=== PATIENT | female | born 1990 | race Two or more races ===

== ENCOUNTER 2018-01-17 18:10 | Observation (INO) | payer MEDICAID | END 2018-01-17 19:05 | disposition home or self-care (01) | DRG 566 | LOC: LDRP 18:10 | PROVIDERS: ADMIT Obstetrics & Gynecology; ATTEND Obstetrics & Gynecology | DX: O26.893 Other specified pregnancy related conditions, third trimester (principal); M54.5 Low back pain; R06.02 Shortness of breath; R07.89 Other chest pain; R42 Dizziness and giddiness; Z3A.32 32 weeks gestation of pregnancy | CPT/HCPCS: 59025; 81002; G0378 ==

== ENCOUNTER 2019-05-28 09:34 | Emergency (ER) | payer MEDICAID ==
[~2019-05-28] VITALS: Ht 144.8 cm; Wt 65.8 kg
[~2019-05-28 09:34] MED LIST: PREN-145 OR
[2019-05-28 10:24] VITALS: BP 139/81
[2019-05-28] MEDS ORDERED: BENZOCAINE (DENTAL) 20 % SPRAY 60ML MT ONE (11:00)
== END 2019-05-28 11:44 | disposition home or self-care (01) ==
LOC: ER 09:34
DX: O26.891 Other specified pregnancy related conditions, first trimester (principal); K08.89 Other specified disorders of teeth and supporting structures; Z3A.12 12 weeks gestation of pregnancy

== ENCOUNTER 2019-11-13 10:00 | Observation (INO) | payer MEDICAID | END 2019-11-13 10:35 | disposition home or self-care (01) | LOC: LDRP 10:00 | PROVIDERS: ADMIT Specialist; ATTEND Specialist | DX: O62.9 Abnormality of forces of labor, unspecified (principal); O26.893 Other specified pregnancy related conditions, third trimester; R10.2 Pelvic and perineal pain; Z3A.37 37 weeks gestation of pregnancy | CPT/HCPCS: 59025; 81002; G0378 ==

== ENCOUNTER 2019-11-16 02:59 | Inpatient (IN) | payer MEDICAID ==
[~2019-11-16] VITALS: Ht 152.4 cm; Wt 72.6 kg
[2019-11-16] MEDS ORDERED: LACTATED RINGER'S 1,000 ML IV SCH (03:44)
[2019-11-16] MEDS ORDERED: LIDOCAINE 2%HCL (LOCAL ANESTH.) INJ 20ML MDV ID ONE (03:45)
[2019-11-16] MEDS ORDERED: METHYLERGONOVINE MALEATE 0.2 MG/ML AMP IM PRN (03:45)
[2019-11-16] MEDS ORDERED: WITCH HAZEL-GLYCERIN PAD TOP PRN (03:45)
[2019-11-16] MEDS ORDERED: PHISODERM TOP SOLN 240ML BTL TOP PRN (03:45)
[2019-11-16] MEDS ORDERED: DERMOPLAST 60ML BOTTLE TOP PRN (03:45)
[2019-11-16] MEDS ORDERED: miSOPROStol 100 mcg TAB PR ONE (04:45)
[2019-11-16] MEDS ORDERED: miSOPROStol 100 mcg TAB SL ONE (04:45)
[2019-11-16] MEDS ORDERED: LACT. RINGERS/OXYTOCIN 20UNITS 1,000 ML IV SCH ×2 (05:00→07:17)
[2019-11-16 05:10] LABS: Basophils # (auto) 0.1 10 ^3/uL (0-0.2); Basophils % (auto) 0.5 % (0.0-2.0); Eosinophils # (auto) 0 10 ^3/uL (0-0.8); Eosinophils % (auto) 0.1 % (0.0-7.0); Hematocrit 31.8 % (36.0-46.0); Hemoglobin 10.3 g/dL (12.2-16.2); Lymphocytes # (auto) 1.2 10 ^3/uL (0.4-5.4); Lymphocytes % (auto) 10.8 % (10.0-50.0); Mean Corpuscular Hemoglobin 28.4 pg (28.0-32.0); Mean Corpuscular Hgb Conc. 32.5 g/dL (32.0-36.0); Mean Corpuscular Volume 87.2 fL (80.0-100.0); Monocytes # (auto) 0.3 10 ^3/uL (0-1.3); Monocytes % (auto) 2.7 % (0.0-12.0); Neutrophils # (auto) 9.9 10 ^3/uL (1.6-8.6); Neutrophils % (auto) 85.9 % (37.0-80.0); Nucleated Red Blood Cells % 0.1 %; Platelet Count (auto) 250 10^3/uL (140-450); Red Blood Cells 3.65 10^6/uL (4.0-5.20); Red Cell Distribution Width 16.9 % (11.8-14.3); White Blood Cell 11.5 10^3/uL (4.4-10.8)
[2019-11-16 05:25] LABS: INR 0.92 (0.9-1.15); Partial Thromboplastin Time 29.6 sec (23.0-31.2)
[2019-11-16 05:27] LABS: Albumin 2.6 g/dL (3.4-5.0); Calcium 8.1 mg/dL (8.5-10.1); Potassium 3.6 mmol/L (3.5-5.1)
[2019-11-16 05:30] LABS: BUN/Creatinine Ratio 10.3; Bilirubin, Total 0.3 mg/dL (0.2-1.0); Total Protein 6.9 g/dL (6.4-8.2); Uric Acid 4.5 mg/dL (2.6-6.0)
[2019-11-16] MEDS ORDERED: LACT. RINGERS/OXYTOCIN 20UNITS 500 ML IV ONE (06:17)
[2019-11-16 06:34] VITALS: BP 122/66
--- NOTE | 2019-11-16 06:45 | NUR ---
PT informed of rapid covid test results negative and second test recommended to confirm result, PT refuses second test at this time
[2019-11-16] MEDS: IBUPROFEN 600 MG TAB PO PRN ×2 (06:52→22:40)
[2019-11-16 08:50] VITALS: BP 106/62
--- NOTE | 2019-11-16 08:50 | NUR ---
Ambulation: Patient OOB with standby assistance by RN. Patient ambulated to bathroom with steady gait. Patient able to void 250ml without difficulty. [facility] teaching provided with returned demonstration by patient. Clean gown provided and bed linen changed. Patient ambulated back to bed with steady gait and no distress noted.
[2019-11-16 10:09] LABS: Alcohol, Urine < 3.0 mg/dL (0-10); Amphetamine Screen, Urine NEGATIVE (NEGATIVE); Barbiturate Scree,Urine NEGATIVE (NEGATIVE); Benzodiazephine Screen, Urine NEGATIVE (NEGATIVE); Cannabinoid Screen, Urine NEGATIVE (NEGATIVE); Cocaine Screen, Urine NEGATIVE (NEGATIVE); Opiate Scree,Urine NEGATIVE (NEGATIVE); Phencyclidine Screen, Urine NEGATIVE (NEGATIVE)
[2019-11-16 10:10] LABS: Urine Bacteria NONE SEEN /hpf (None Seen); Urine Blood 3+ /uL (Negative); Urine Mucus FEW (None Seen); Urine Specific Gravity 1.012 (1.001-1.035); Urine WBC 9 /hpf (0 - 5)
[2019-11-16 10:43] VITALS: BP 114/63
--- NOTE | 2019-11-16 12:22 | NUR ---
Report given to Alice Mireles RN, relinquished PT care
[2019-11-16 15:00] VITALS: BP 90/43
[2019-11-16 19:00] VITALS: BP 114/77
--- NOTE | 2019-11-16 19:11 | NUR ---
IV removal IV DC'd with sterile technique, catheter fully intact. Pressure dressing applied to site. Patient tolerated procedure well.
[2019-11-16 22:45] VITALS: BP 91/58
[2019-11-17 02:36] VITALS: BP 94/53
[2019-11-17 05:09] LABS: RPR Non Reactive (Non Reactive)
[2019-11-17 07:00] VITALS: BP 105/67
[2019-11-17 11:15] VITALS: BP 100/60
--- NOTE | 2019-11-17 12:40 | NUR ---
Discharge: Discharge instructions given as ordered. Pt encouraged to follow up with [employer] as instructed. All questions and concerns addressed. Patient verbalized understanding. Medication reconciliation completed and copy given to patient. All required/requested vaccines given and copies of vaccinations given to patient. Patient encouraged to prepare to depart unit.
--- NOTE | 2019-11-17 14:00 | NUR ---
Discharge: Patient taken to vehicle via wheelchair with all personal belongings, accompanied by staff and family member. No distress noted at time of departure, no adverse changes in status since initial assessment.
== END 2019-11-17 14:00 | disposition home or self-care (01) | DRG 560 ==
LOC: OBSVTOIN 02:59 → LDRP 02:59
PROVIDERS: ADMIT Specialist; ATTEND Specialist
PROC: 10E0XZZ Delivery of Products of Conception, External Approach (ICD-10-PCS; principal; 2019-11-16)
DX: O77.0 Labor and delivery complicated by meconium in amniotic fluid (principal); Z37.0 Single live birth; Z3A.37 37 weeks gestation of pregnancy; Z20.828 Contact with and (suspected) exposure to other viral communicable diseases; O45.93 Premature separation of placenta, unspecified, third trimester
CPT/HCPCS: 36415; 59025; 59409; 80053; 80307; 81001; 84112; 84550; 85025; 85610; 85730; 86592; 86850; 86900; 86901; 87340; 87426; 96360; 96361; G0378; J2590

== ENCOUNTER 2020-07-04 12:50 | Emergency (ER) | payer MEDICAID ==
[~2020-07-04] VITALS: Ht 152.4 cm; Wt 68.0 kg
[2020-07-04 14:27] VITALS: BP 99/72
== END 2020-07-04 14:41 | disposition home or self-care (01) ==
LOC: ER 12:50
DX: T78.40XA Allergy, unspecified, initial encounter (principal); K04.7 Periapical abscess without sinus; X58.XXXA Exposure to other specified factors, initial encounter